=== PATIENT | male | born 1955 | race Caucasian/White ===

== ENCOUNTER 2020-09-20 07:53 | Day surgery (SDC) | payer OTHER ==
[~2020-09-20] VITALS: Ht 177.8 cm; Wt 113.9 kg
[~2020-09-20 07:53] MED LIST: ALBU90OI INH; GABA300 PO; HYDR1TAB94 PO; IBUP800 PO; LEVOTHYROXINE175 MCG PO; LOSARTAN POTASS50 M1 PO; MONT10T PO; OMEGA-3 FISH O1 EAC6 PO; OMEP20ER PO; Percocet 5-3251 EACH PO; STIOLTO RESPIMAT4 G1 INH; SYNTHROID175 MCG PO; TEMA30 PO
--- NOTE | 2020-09-20 11:22 | NUR ---
09/20/20 1122 JENIFFER THOMAS 9 ML INJECTION NORMAL SALINE USED FOR POLYPECTOMIES
--- NOTE | 2020-09-20 12:33 | NUR ---
09/20/20 1233 JENIFFER THOMAS PT TAKEN TO XRAY FOR ABDOMINAL SCAN PER DR PIERRE. PT DC UPON RESULTS UNREMARKABLE.
== END 2020-09-20 12:15 | disposition home or self-care (01) ==
LOC: ORSCSDS 07:53
PROVIDERS: Student in an Organized Health Care Education/Training Program
PROC: 0DBL8ZX Excision of Transverse Colon, Via Natural or Artificial Opening Endoscopic, Diagnostic (ICD-10-PCS; principal; 2020-09-20 09:30)
PROC: 0DBK8ZX Excision of Ascending Colon, Via Natural or Artificial Opening Endoscopic, Diagnostic (ICD-10-PCS; principal; 2020-09-20 09:30)
PROC: 0DBM8ZX Excision of Descending Colon, Via Natural or Artificial Opening Endoscopic, Diagnostic (ICD-10-PCS; principal; 2020-09-20 09:30)
PROC: 0DBN8ZX Excision of Sigmoid Colon, Via Natural or Artificial Opening Endoscopic, Diagnostic (ICD-10-PCS; principal; 2020-09-20 09:30)
PROC: 0DBP8ZX Excision of Rectum, Via Natural or Artificial Opening Endoscopic, Diagnostic (ICD-10-PCS; principal; 2020-09-20 09:30)
DX: K92.1 Melena (principal); Z86.010 Personal history of colon polyps; D12.3 Benign neoplasm of transverse colon; D12.2 Benign neoplasm of ascending colon; D12.4 Benign neoplasm of descending colon; D12.5 Benign neoplasm of sigmoid colon; D12.8 Benign neoplasm of rectum; K62.1 Rectal polyp; K57.30 Diverticulosis of large intestine without perforation or abscess without bleeding; K64.8 Other hemorrhoids; I10 Essential (primary) hypertension; F17.210 Nicotine dependence, cigarettes, uncomplicated; J44.9 Chronic obstructive pulmonary disease, unspecified; K21.9 Gastro-esophageal reflux disease without esophagitis; E03.9 Hypothyroidism, unspecified; E66.01 Morbid (severe) obesity due to excess calories; Z68.36 Body mass index [BMI] 36.0-36.9, adult; Z87.891 Personal history of nicotine dependence; Z79.899 Other long term (current) drug therapy
CPT/HCPCS: 74019; 88305; J2704; J7120